=== PATIENT | male | born 1990 | race Caucasian/White ===

== ENCOUNTER 2018-04-28 15:37 | Emergency (ER) | payer MEDICAID ==
[~2018-04-28] VITALS: Ht 185.4 cm; Wt 140.9 kg
[2018-04-28 17:36] VITALS: BP 142/98
== END 2018-04-28 17:54 | disposition home or self-care (01) ==
LOC: EMS 15:41
DX: B86 Scabies (principal); L30.4 Erythema intertrigo
CPT/HCPCS: 99282

== ENCOUNTER 2023-04-03 23:46 | Inpatient (IN) | payer SELFPAY ==
[~2023-04-03] VITALS: Ht 185.4 cm; Wt 166.0 kg
[2023-04-04 00:08] LABS: BASOPHILS % (AUTO) 0.9 % (0.0-2.0); EOSINOPHILS % (AUTO) 3.7 % (1.0-6.0); HEMATOCRIT 49.8 % (41-53); LYMPHOCYTES # (AUTO) 1.5 K/uL (1.0-4.8); LYMPHOCYTES % (AUTO) 18.3 % (22.0-44.0); MEAN CORPUSCULAR HEMOGLOBIN 29.7 pg (26.0-34.0); MEAN CORPUSCULAR VOLUME 87 fL (80-100); MONOCYTES # (AUTO) 0.7 K/uL (0.1-1.0); MONOCYTES % (AUTO) 9.1 % (2.0-9.0); NEUTROPHILS # (AUTO) 5.6 K/uL (1.8-7.7); PLATELET COUNT (AUTO) 219 K/uL (150-450); RED CELL DISTRIBUTION WIDTH 14.1 % (11.5-14.5)
[2023-04-04 00:11] LABS: GLUCOMETER DEV NAME(LOC) ER.6
[2023-04-04] MEDS ORDERED: LABETALOL HCL 5 MG/ML 20 ML VIAL IVP ONE (00:15)
[2023-04-04] MEDS ORDERED: FUROSEMIDE 40 MG/4 ML VIAL IVP ONE (00:15)
[2023-04-04 00:21] LABS: ANION GAP 10 mmol/L (8-16); CALCIUM, TOTAL 8.2 mg/dL (8.8-10.5); CARBON DIOXIDE 25 mmol/L (22-29); CHLORIDE 104 mmol/L (98-107); GLOMERULAR FILTR. RATE CALC > 60 mL/min (>60); GLUCOSE,RANDOM 138 mg/dL (70-110); POTASSIUM 3.4 mmol/L (3.5-5.1); SODIUM SERUM 139 mmol/L (136-145)
[2023-04-04 00:26] LABS: ALANINE AMINOTRANSFERASE 144 U/L (12-78); ALBUMIN 3.4 g/dL (3.4-5.0); ALKALINE PHOSPHATASE 83 U/L (46-116); ASPARTATE AMINOTRANSFERASE 65 U/L (15-37); BILIRUBIN,TOTAL 0.5 mg/dL (0.1-1.0); TOTAL PROTEIN, SERUM 6.9 g/dL (6.4-8.2)
[2023-04-04 00:36] LABS: B-TYPE NATRIURETIC PEPTIDE 234 pg/mL (0-100)
[2023-04-04 01:34] LABS: APPEARANCE,URINE CLEAR (CLEAR); BILIRUBIN,URINE NEGATIVE (NEGATIVE); GLUCOSE, URINE (UA) NEGATIVE (NEGATIVE); KETONES,URINE NEGATIVE (NEGATIVE); LEUKOCYTE ESTERASE ,URINE NEGATIVE (NEGATIVE); NITRATE,URINE NEGATIVE (NEGATIVE); OCCULT BLOOD,URINE NEGATIVE (NEGATIVE); PROTEIN,URINE 30-70 mg/dL (NEGATIVE); UROBILINOGEN,URINE <=1.0 mg/dL (<=1.0)
[2023-04-04 01:37] LABS: BACTERIA,URINE None Seen /HPF (None Seen); RBC,URINE None Seen /HPF (0-2); SQUAMOUS EPITHELIAL CELL,UR Few /LPF (None Seen); WBC,URINE None Seen /HPF (0-5)
[2023-04-04 01:39] LABS: AMPHET/METH SCREEN,URINE NEGATIVE (NEGATIVE); BARBITURATE SCREEN, URINE NEGATIVE (NEGATIVE); BENZODIAZEPINES SCREEN,URINE NEGATIVE (NEGATIVE); CANNABINOID SCREEN,URINE NEGATIVE (NEGATIVE); COCAINE SCREEN,URINE NEGATIVE (NEGATIVE); METHADONE SCREEN, URINE NEGATIVE (NEGATIVE); OPIATE SCREEN,URINE NEGATIVE (NEGATIVE); PHENCYCLIDINE SCREEN,URINE NEGATIVE (NEGATIVE)
[2023-04-04] MEDS ORDERED: ASPIRIN 325 MG TABLET PO ONE (02:30)
[2023-04-04] MEDS ORDERED: POTASSIUM CHLORIDE 10% 40 MEQ/30 ML LIQUID UDCUP PO ONE (02:30)
[2023-04-04 03:13] LABS: COVID AG,FIA SOURCE NASOPHARYNGEAL
[2023-04-04 03:45] VITALS: BP 131/79; PULSE 96; RESP 21; TEMP 98.3
[2023-04-04 08:00] VITALS: BP_SYST 140; BP_DIAS 55; BP_DIAS 99; PULSE 70; PULSE 89; RESP 16; TEMP 98.4; TEMP 98.7
[2023-04-04] MEDS: OXYGEN THERAPY IH SCH (08:00)
[2023-04-04] MEDS ORDERED: MORPHINE SULFATE 2 MG/ML SYRINGE IVP PRN (11:15)
[2023-04-04] MEDS ORDERED: MAGNESIUM HYDROXIDE SUSPENSION 30 ML UDCUP PO PRN (11:15)
[2023-04-04] MEDS ORDERED: HYDROCODONE/ACETAMINOPHEN 5-325 MG TABLET PO PRN (11:15)
[2023-04-04] MEDS ORDERED: ACETAMINOPHEN 325 MG TABLET PO PRN (11:15)
[2023-04-04] MEDS ORDERED: ONDANSETRON HCL 4 MG/2 ML VIAL IVP PRN (11:15)
[2023-04-04] MEDS ORDERED: BISACODYL 10 MG RECTAL RECTAL SUPPOSITORY PR PRN (11:15)
[2023-04-04] MEDS ORDERED: ZOLPIDEM TARTRATE 5 MG TABLET PO PRN (11:15)
[2023-04-04 11:39] VITALS: BP 143/105; PULSE 97; RESP 18; TEMP 98.2
[2023-04-04 15:38] VITALS: BP 137/79; PULSE 84; RESP 16; TEMP 98.2
[2023-04-04] MEDS: HEPARIN SODIUM,PORCINE 5,000 UNITS/ML VIAL SQ SCH ×2 (15:41→23:49)
[2023-04-04] MEDS ORDERED: NITROGLYCERIN 2% (1 GM=INCH) OINTMENT PACKET TP SCH (16:00)
[2023-04-04 20:46] VITALS: BP 134/98; PULSE 93; RESP 20; TEMP 98.6
[2023-04-04] MEDS: CARVEDILOL 6.25 MG TABLET PO SCH (20:47)
[2023-04-04] MEDS: DOCUSATE SODIUM 100 MG CAPSULE PO SCH (20:47)
[2023-04-04] MEDS: FUROSEMIDE 20 MG TABLET PO SCH (20:49)
[2023-04-04] MEDS ORDERED: ATORVASTATIN CALCIUM 10 MG TABLET PO SCH (21:00)
[2023-04-04] MEDS ORDERED: FUROSEMIDE 20 MG/2 ML VIAL IVP SCH (21:00)
[2023-04-05 00:24] VITALS: BP 127/81; PULSE 81; RESP 20; TEMP 97.9
[2023-04-05 05:12] VITALS: BP 138/68; PULSE 81; RESP 20; TEMP 98.1
[2023-04-05 07:27] VITALS: BP 154/94; PULSE 93; RESP 18; TEMP 98.5
[2023-04-05 07:29] LABS: CHOL/HDL RATIO 4.4 (4.2-7.3); CHOLESTEROL 166 mg/dL (131-200); HDL CHOLESTEROL 38 mg/dL (40-60); LDL CHOL (CALC.) 107 mg/dL (0-130); TRIGLYCERIDES 106 mg/dL (15-150)
[2023-04-05 08:41] LABS: BASOPHILS % (AUTO) 0.4 % (0.0-2.0); EOSINOPHILS % (AUTO) 4.4 % (1.0-6.0); HEMATOCRIT 46.5 % (41-53); HEMOGLOBIN 15.9 g/dL (13.5-17.5); LYMPHOCYTES # (AUTO) 0.8 K/uL (1.0-4.8); LYMPHOCYTES % (AUTO) 11.9 % (22.0-44.0); MEAN CORPUSCULAR HEMOGLOBIN 30.1 pg (26.0-34.0); MEAN CORPUSCULAR HGB CONC 34.2 G/dL (31.0-37.0); MEAN CORPUSCULAR VOLUME 88 fL (80-100); MONOCYTES # (AUTO) 0.6 K/uL (0.1-1.0); MONOCYTES % (AUTO) 8.2 % (2.0-9.0); NEUTROPHILS # (AUTO) 5.2 K/uL (1.8-7.7); NEUTROPHILS % (AUTO) 75.1 % (40.0-70.0); PLATELET COUNT (AUTO) 196 K/uL (150-450); RED BLOOD CELL COUNT(AUTO) 5.29 MIL/uL (4.50-5.90); RED CELL DISTRIBUTION WIDTH 13.6 % (11.5-14.5)
[2023-04-05 08:44] LABS: ANION GAP 11 mmol/L (8-16); CALCIUM, TOTAL 8.7 mg/dL (8.8-10.5); CARBON DIOXIDE 27 mmol/L (22-29); CHLORIDE 103 mmol/L (98-107); CREATININE 0.84 mg/dL (0.60-1.30); GLOMERULAR FILTR. RATE CALC > 60 mL/min (>60); GLUCOSE,RANDOM 134 mg/dL (70-110); POTASSIUM 3.4 mmol/L (3.5-5.1); SODIUM SERUM 141 mmol/L (136-145)
[2023-04-05] MEDS ORDERED: LISINOPRIL 5 MG TABLET PO SCH (09:00)
[2023-04-05] MEDS ORDERED: ASPIRIN 81 MG CHEWABLE TABLET PO SCH (09:00)
[2023-04-05] MEDS ORDERED: ASPIRIN 81 MG DR TABLET PO SCH (09:00)
[2023-04-05] MEDS ORDERED: SPIRONOLACTONE 25 MG TABLET PO SCH (09:00)
[2023-04-05] MEDS ORDERED: LOSARTAN POTASSIUM 25 MG TABLET PO SCH (09:00)
[2023-04-05] MEDS ORDERED: PANTOPRAZOLE SODIUM 40 MG DR TABLET PO SCH (09:00)
[2023-04-05] MEDS: HEPARIN SODIUM,PORCINE 5,000 UNITS/ML VIAL SQ SCH (09:08)
[2023-04-05] MEDS: FUROSEMIDE 20 MG TABLET PO SCH (09:09)
[2023-04-05] MEDS: DOCUSATE SODIUM 100 MG CAPSULE PO SCH (09:09)
[2023-04-05] MEDS: CARVEDILOL 6.25 MG TABLET PO SCH (09:10)
[2023-04-05 10:52] VITALS: BP 138/74; PULSE 96; RESP 18; TEMP 98
[2023-04-05] MEDS ORDERED: ASPI-1444 PO (12:48)
[2023-04-05] MEDS ORDERED: ATOR10TA69 PO (12:48)
[2023-04-05] MEDS ORDERED: CARV6 PO (12:48)
[2023-04-05] MEDS ORDERED: FURO20 PO (12:48)
[2023-04-05] MEDS ORDERED: SPIR-37 PO (12:48)
[2023-04-05] MEDS ORDERED: LOSA25TA2 PO (12:48)
== END 2023-04-05 14:30 | disposition home or self-care (01) | DRG 291 ==
LOC: EMS 23:47 → 5S 04-04 02:41
PROVIDERS: ADMIT Internal Medicine; ATTEND Internal Medicine
DX: I11.0 Hypertensive heart disease with heart failure (principal); I50.23 Acute on chronic systolic (congestive) heart failure; J96.00 Acute respiratory failure, unspecified whether with hypoxia or hypercapnia; Z68.42 Body mass index [BMI] 45.0-49.9, adult; E87.6 Hypokalemia; Z20.822 Contact with and (suspected) exposure to COVID-19; F10.129 Alcohol abuse with intoxication, unspecified; E66.01 Morbid (severe) obesity due to excess calories; R73.9 Hyperglycemia, unspecified; I34.0 Nonrheumatic mitral (valve) insufficiency; F15.10 Other stimulant abuse, uncomplicated
CPT/HCPCS: 70450; 71045; 80048; 80053; 80061; 80307; 81001; 82962; 83880; 84484; 85025; 87040; 93005; 93306; 99291; G0378; G0480; J1644; J1940; J3490; 36415-L1; 36415-TC

== ENCOUNTER 2025-05-28 22:48 | Emergency (ER) | payer SELFPAY ==
[~2025-05-28] VITALS: Ht 185.4 cm; Wt 122.7 kg
[~2025-05-28 22:48] MED LIST: ASPI-1444 PO; ATOR10TA69 PO; CARV-165 PO; FURO20TA5 PO; LOSA-417 PO; SPIR-37 PO
[2025-05-28 23:30] VITALS: TEMP 97.3
[2025-05-28 23:57] LABS: PLATELET COUNT (AUTO) 195 K/uL (150-450); RED BLOOD CELL COUNT(AUTO) 4.98 MIL/uL (4.50-5.90); RED CELL DISTRIBUTION WIDTH 13.7 % (11.5-14.5); WHITE BLOOD COUNT (AUTO) 6.3 K/uL (4.5-11.0)
[2025-05-29 00:02] LABS: CALCIUM, TOTAL 8.2 mg/dL (8.8-10.5); CREATININE 0.73 mg/dL (0.60-1.30); GLOMERULAR FILTR. RATE CALC > 60 mL/min (>60); GLUCOSE,RANDOM 132 mg/dL (70-110); SODIUM SERUM 139 mmol/L (136-145); UREA NITROGEN, BLOOD 13 mg/dL (7-18)
[2025-05-29] MEDS: SODIUM CHLORIDE 0.9% 1,000 ML IV ONE (00:05)
[2025-05-29 00:07] LABS: ASPARTATE AMINOTRANSFERASE 30.0 U/L (15-37); TOTAL PROTEIN, SERUM 7.1 g/dL (6.4-8.2)
[2025-05-29 00:10] LABS: ALCOHOL, BLOOD (SERUM) 292.0 mg/dL (0-10)
[2025-05-29] MEDS: POTASSIUM CHLORIDE 20 MEQ ER TABLET PO ONE (01:15)
[2025-05-29 05:24] VITALS: BP 124/73; PULSE 74; RESP 18; O2SAT 97
== END 2025-05-29 05:36 | disposition home or self-care (01) ==
LOC: EMS 22:48
DX: F10.129 Alcohol abuse with intoxication, unspecified (principal); E11.9 Type 2 diabetes mellitus without complications; I10 Essential (primary) hypertension; Z79.82 Long term (current) use of aspirin; Z79.899 Other long term (current) drug therapy; Y90.8 Blood alcohol level of 240 mg/100 ml or more; W18.39XA Other fall on same level, initial encounter
CPT/HCPCS: 99283; 80048; 80076; 85025; 36415; G0480